=== PATIENT | female | born 1995 | race Two or more races ===

== ENCOUNTER 2023-04-13 11:02 | Emergency (ER) | payer BC, OTHER ==
[~2023-04-13] VITALS: Ht 175.3 cm; Wt 97.5 kg
[2023-04-13 12:07] VITALS: BP 145/97; PULSE 112; RESP 17; TEMP 98.2; O2SAT 99
[2023-04-13] MEDS ORDERED: IBUP-1456 PO (12:56)
== END 2023-04-13 13:03 | disposition home or self-care (01) ==
LOC: ER 11:02
DX: M77.8 Other enthesopathies, not elsewhere classified (principal); Z79.899 Other long term (current) drug therapy
CPT/HCPCS: 73110